=== PATIENT | female | born 2005 | race Two or more races ===

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

== ENCOUNTER 2025-01-22 09:48 | Inpatient (IN) | payer MEDICAID ==
[~2025-01-22] VITALS: Ht 172.7 cm; Wt 86.7 kg
[2025-01-22 09:56] VITALS: PULSE 90; RESP 18; O2SAT 100
--- NOTE | 2025-01-22 10:04 | ED.PDOC ---
GI ASSESSMENT HPI Comments 20 y/o F, with PMHx of DM II presents to the ED for CC of abdominal pain. Patient states, she has been experiencing RLQ abdominal pain with associated symptoms of nausea and chills onset, last night (01/21/25). Patient denies vomiting, diarrhea, body-aches, or fever. No other associated symptoms, modifiers, recent injuries or sick contacts present at this time. Time Seen by MD: 09:58 Primary Care Provider: DR VALIENTE Reviewed Notes: Nurses Notes, Medications, Allergies Allergies: Coded Allergies: NO KNOWN ALLERGIES (Unverified , 07/21/11) Home Meds Active Scripts Acetaminophen (Acetaminophen) 500 Mg Tab, 500 MG PO Q6HPRN, #30 TAB 0 Refills Prov:NINFA ALBA 06/14/23 Amoxicillin & Pot Clavulanate (Amoxicillin/Potassium Cla) 875 Mg Tab, 1 TAB PO BID for 7 Days, #14 TAB 0 Refills Prov:NINFA ALBA 06/14/23 Cephalexin ( Keflex 500) 500 Mg Cap, 1 CAP PO TID for 5 Days, #15 CAP 0 Refills Prov:VICKY PATE 03/08/22 Glyburide (Glyburide) 5 Mg Tab, 5 MG PO DAILY, #30 MG Prov:ADITI HIDALGO DO 12/30/21 Acetaminophen (Acetaminophen) 500 Mg Tab, 500 MG PO QIDP, #30 TAB 0 Refills Prov:NINFA ALBA 10/19/21 Amoxicillin & Pot Clavulanate (Amoxicillin/Potassium Cla) 875 Mg Tab, 1 TAB PO BID for 7 Days, #14 TAB 0 Refills Prov:NINFA ALBA 10/19/21 Information Source: Patient Mode of Arrival: Ambulatory Timing: Days Duration: Since onset Prehospital treatment: None Quality: None Vomitus: None Stool: Normal Severity: Moderate Recent: None Recent Hx of: None Pain Location: RLQ Modifying Factors: Nothing Associated sign and symptoms: Nausea, Abdominal Pain Past Medical History PAST MEDICAL HISTORY: DM Surgical History: Tonsillectomy MOBILITY MANAGER History: No Pertinent MOBILITY MANAGER History Family History Family History: Unknown Social History Smoker: Non-Smoker Alcohol: Denies ETOH Use Drugs: Denies Drug Use Lives In: Home Constitutional: reports: chills; denies: diaphoresis, fatigue, fever, malaise, sweats, weakness, others EENTM: denies: blurred vision, double vision, ear bleeding, ear discharge, ear drainage, ear pain, ear ringing, eye pain, eye redness, hearing loss, mouth pain, mouth swelling, nasal discharge, nose bleeding, nose congestion, nose pain, photophobia, tearing, throat pain, throat swelling, voice changes, others Respiratory: denies: cough, hemoptysis, orthopnea, SOB at rest, shortness of breath, SOB with excertion, stridor, wheezing, others Cardiovascular: denies: chest pain, dizzy spells, diaphoresis, Dyspnea on exertion, edema, irregular heart beat, left arm pain, lightheadedness, palpitations, PND, syncope, others Gastrointestinal: reports: abdominal pain, nausea; denies: abdomen distended, blood streaked bowels, constipated, diarrhea, dysphagia, difficulty swallowing, hematemesis, melena, poor appetite, poor fluid intake, rectal bleeding, rectal pain, vomiting, others Genitourinary: denies: abnormal vagina bleeding, burning, dyspareunia, dysuria, flank pain, frequency, hematuria, incontinence, pain, , vagina disc harge, urgency, others Neurological: denies: dizziness, fainting, headache, left sided numbness, left sided weakness, numbness, paresthesia, pre-existing deficit, right sided numbness, right sided weakness, seizure, speech problems, tingling, tremors, weakness, others Musculoskeletal: denies: back pain, gout, joint pain, joint swelling, muscle pain, muscle stiffness, neck pain, others Integumetry: denies: bruises, change in color, change in hair/nails, dryness, laceration, lesions, lumps, rash, wounds, others Allergic/Immunocompromised: denies: Difficulty Healing, Frequent Infections, Hives, Itching, others Hematologic/Lymphatic: denies: anemia, blood clots, easy bleeding, easy bruising, swollen glands, others Endocrine: denies: excessive hunger, excessive sweating, excessive thirst, excessive urination, flushing, intolerance to cold, intolerance to heat, unexplained weight gain, unexplained weight loss, others Psychiatric: denies: anxiety, bipolar disorder, depression, hopeless, panic disorder, schizophrenia, sleepless, suicidal, others All Other Systems: Reviewed and Negative Physical Exam General Appearance: Moderate Distress HEENT: Normal ENT Inspection, Pharynx Normal, TMs Normal Neck: Full Range of Motion, Non-Tender, Normal, Normal Inspection Respiratory: Chest Non-Tender, Lungs Clear, No Accessory Muscle Use, No Respiratory Distress, Normal Breath Sounds Cardiovascular: No Edema, No JVD, No Murmur, No Gallop, Normal Peripheral Pulses, Regular Rate/Rhythm Breast Exam: Deferred Gastrointestinal: No Organomegaly, Non Tender, No Pulsatile Mass, Normal Bowel Sounds, Soft Genitalia: Deferred Pelvic: Deferred Rectal: Deferred Extremities: No calf tenderness, Normal capillary refill, Normal inspection, Normal range of motion, Non-tender, No pedal edema Musculoskeletal : Apperance: Normal Neurologic: Alert, production generalist II-XII nml as Tested, No Motor Deficits, Normal Affect, Normal Mood, No Sensory Deficits Cerebellar Function: Normal Reflexes: Normal Skin: Dry, Normal Color, Warm Peripheral Pulses: 3+ Radial (R), 3+ Radial (L) Lymphatic: No Adenopathy Was a procedure done? Was a procedure done?: No GI differential Dx Differential Diagnosis: Constipation, Diverticular disease, Esophagitis, Gastritis/PUD, Gastroenteritis, Electrolyte Imbalance, Food Poisoning, Bacterial, Viral X-Ray, Labs, Meds, VS Vital Signs Date Time Temp Pulse Resp B/P (MAP) Pulse Ox O2 Delivery O2 Flow Rate FiO2 01/22/25 10:42 81 18 99 Room Air 01/22/25 10:42 99.0 87 18 135/83 (100) 99 99.0 01/22/25 09:56 90 18 100 Room Air* 0 21 01/22/25 09:56 98.1 90 18 162/75 (104) 100 98.1 Lab Test 01/22/25 10:30 01/22/25 10:22 Range/Units Urine Color Colorless Yellow Urine Clarity Clear Clear Urine pH 6.0 5.0-9.0 Urine Specific [place] 1.033 1.001-1.035 Urine Protein Trace H Negative Urine Ketones 3+ H Negative Urine Blood 1+ H Negative /uL Urine Nitrite Negative Negative Urine Bilirubin Negative Negative Urine Urobilinogen Normal Negative mg/dL Urine Leukocyte Esterase 1+ Negative /uL Urine RBC 9 0 - 4 /hpf Urine Microscopic WBC 50 H 0-5 /HPF Urine Squamous Epithelial Cells Few <5 /hpf Urine Bacteria Few H None Seen /hpf Urine Glucose 4+ H Normal mg/dL White Blood Count 11.2 H 4.4-10.8 10^3/uL Red Blood Count 5.32 H 4.0-5.20 10^6/uL Hemoglobin 16.1 12.2-16.2 g/dL Hematocrit 46.6 H 36.0-46.0 % Mean Corpuscular Volume 87.5 80.0-100.0 fL Mean Corpuscular Hemoglobin 30.3 28.0-32.0 pg Mean Corpuscular Hemoglobin Concent 34.6 32.0-36.0 g/dL Red Cell Distribution Width 12.5 11.8-14.3 % Platelet Count 354 140-450 10^3/uL Mean Platelet Volume 7.5 6.9-10.8 fL Neutrophils (%) (Auto) 73.7 37.0-80.0 % Lymphocytes (%) (Auto) 17.0 10.0-50.0 % Monocytes (%) (Auto) 7.7 0.0-12.0 % Eosinophils (%) (Auto) 1.2 0.0-7.0 % Basophils (%) (Auto) 0.4 0.0-2.0 % Neutrophils # (Auto) 8.2 1.6-8.6 10 ^3/uL Lymphocytes # (Auto) 1.9 0.4-5.4 10 ^3/uL Monocytes # (Auto) 0.9 0-1.3 10 ^3/uL Eosinophils # (Auto) 0.1 0-0.8 10 ^3/uL Basophils # (Auto) 0 0-0.2 10 ^3/uL Nucleated Red Blood Cells 0.1 % Sodium Level 135 L 136-145 mmol/L Potassium Level 4.4 3.5-5.1 mmol/L Chloride Level 97 L 98-107 mmol/L Carbon Dioxide Level 27 20-31 mmol/L Anion Gap 11 5-15 Blood Urea Nitrogen 8 L 9-23 mg/dL Creatinine 0.76 0.550-1.02 mg/dL Glomerular Filtration Rate Calc 115 >90 mL/min BUN/Creatinine Ratio 10.5 10.0-20.0 Serum Glucose 347 H 74-106 mg/dL Calcium Level 10.2 8.7-10.4 mg/dL Patient alert. Complaining of abdominal discomfort. Vitals stable. Answering questions. Abdomen is soft nontender. No sign of distress. Blood sugar elevated. Establish intravenous access. Was given fluids. Was given insulin. UA shows UTI. Was given Rocephin. Explained to the patient. Time of 1ST Reevaluation: 10:22 Reevaluation 1ST: Unchanged Patient Education/Counseling: Diagnosis, Treatment Family Education/Counseling: No Family Present SEPSIS Sepsis Screen Physician Orders 1 Liter Bolus Of 0.9% Ns (01/22/25 11:15) Ceftriaxone Ivpb Rocephin (01/22/25 11:15) Vital Signs Date Time Temp Pulse Resp B/P (MAP) Pulse Ox O2 Delivery O2 Flow Rate FiO2 01/22/25 10:42 81 18 99 Room Air 01/22/25 10:42 99.0 87 18 135/83 (100) 99 99.0 01/22/25 09:56 90 18 100 Room Air* 0 21 01/22/25 09:56 98.1 90 18 162/75 (104) 100 98.1 Laboratory Tests Test 01/22/25 10:22 White Blood Count 11.2 10^3/uL (4.4-10.8) H Departure 1 Departure Time of Disposition: 10:08 Impression: Primary Impression: Sepsis due to urinary tract infection Additional Impression: Diabetes type 2, uncontrolled Qualified Codes: E11.65 - Type 2 diabetes mellitus with hyperglycemia Disposition: ADMITTED INPATIENT Admit to: Med Surg Condition: Guarded Critical Care Note Critical Care Time?: No Stability Stability form required: No Heart Score Heart Score: Heart Score Response (Comments) Value History N/A 0 EKG N/A 0 Age N/A 0 Risk Factors N/A 0 Troponin N/A 0 Total 0 I personally scribed for ORTEGA EDMONDSON MD ([email or web address]) on 01/22/25 at 10:04. Electronically submitted by Nichol Dumont ([email or web address]). ORTEGA EDMONDSON MD Jan 22, 2025 10:04
[2025-01-22 10:38] LABS: Hematocrit 46.6 % (36.0-46.0); Hemoglobin 16.1 g/dL (12.2-16.2); Mean Corpuscular Hemoglobin 30.3 pg (28.0-32.0); Mean Corpuscular Volume 87.5 fL (80.0-100.0); Nucleated Red Blood Cells % 0.1 %
[2025-01-22 10:42] LABS: Potassium 4.4 mmol/L (3.5-5.1)
[2025-01-22 10:43] LABS: Anion Gap 11 (5-15); Carbon Dioxide 27 mmol/L (20-31)
[2025-01-22 10:44] LABS: Calcium 10.2 mg/dL (8.7-10.4)
[2025-01-22 10:48] LABS: BUN/Creatinine Ratio 10.5 (10.0-20.0)
[2025-01-22 10:49] LABS: Blood Urea Nitrogen 8 mg/dL (9-23); Chloride 97 mmol/L (98-107); Glucose 347 mg/dL (74-106); Sodium 135 mmol/L (136-145)
[2025-01-22 10:55] LABS: Urine Protein, UAD TRACE (Negative)
[2025-01-22] MEDS: cefTRIAXone 1GM/50ML D5W 50 ML IV ONE (11:38)
[2025-01-22] MEDS: SODIUM CHLORIDE 0.9% 1,000 ML IV ONE ×2 (11:38→14:15)
[2025-01-22] MEDS: InsuLIN REG 1unit/0.01ml Soln (100units/ml) IV ONE (11:38)
--- NOTE | 2025-01-22 11:52 | DVH ---
EXAM: CT CT AB PEL WO CON-NO ORAL OR IV HISTORY: 20-year-old female with abdominal pain. COMPARISON: None TECHNIQUE: Helical CT images of the abdomen and pelvis were performed without IV contrast. Sagittal a nd coronal reformatted images were obtained. This CT exam was performed using one or more of the foll owing dose reduction techniques: Automated exposure control, adjustment of the mA and/or kv according to patient size, or the use of iterative reconstruction techniques. Radiation Dose: Abdomen/Pelvis: CTDIvol 13.37 mGy, DLP 778.208 mGy*cm. FINDINGS: CT abdomen: The lung bases are clear. The heart is not enlarged. The noncontrast liver, spleen, gallb ladder, pancreas, kidneys, and adrenal glands are unremarkable. There is fat stranding about the righ t proximal ureter. No abdominal aortic aneurysm. There is a left upper quadrant splenule. CT pelvis: No abnormal bowel dilatation or free air. The appendix and uterus are unremarkable. The ur inary bladder wall is diffusely thickened. There is low volume free fluid in the pelvis. There is low er lumbar degenerative disc disease. There is grade 1 anterolisthesis L5 on S1 without evidence of s pondylolysis. IMPRESSION: 1. Diffuse urinary bladder wall thickening suggestive of cystitis. Additionally, there is mild fat s tranding about the right proximal ureter which may indicate ureteritis or early pyelonephritis. 2. Low volume free fluid in the pelvis may be physiologic. 3. No evidence of bowel obstruction, acute appendicitis, or other acute process in the abdomen or pel vis.
[2025-01-22] MEDS ORDERED: ONDANSETRON HCL 4 MG/2 ML VIAL IV PRN (14:15)
[2025-01-22] MEDS ORDERED: DEXTROSE (50%) 50ML SYRG IV PRN (14:15)
[2025-01-22] MEDS ORDERED: DOCUSATE SOD 100 MG CAP PO PRN (14:15)
--- NOTE | 2025-01-22 14:24 | DVHHP2 ---
History of Present Illness Reason for Visit: Abdominal pain History of Present Illness Cindy Best is a 20-year-old female with past medical history of diabetes and hyperlipidemia, who came to the hospital due to abdominal pain. Patient states the abdominal pain is in her pelvic region radiating to the right. It started last night with associated chills, and body aches. Cardiovascular: hyperipidemia Endocrine: Diabetes Past Surgical History: None Smoke: No ALCOHOL: none Drugs: Marijuana Lives: with Family Domestic Violence: Neg Review of Systems Constitutional: Yes: Chills, Malaise, Other (bodyaches); No: Fever, Sweats, Weakness Eyes: No: Pain, Vision change, Conjunctivae inflammation, Eyelid inflammation, Other, Redness ENT: No: Ear pain, Ear discharge, Nose pain, Nose discharge, Nose congestion, Mouth pain, Mouth swelling, Throat pain, Throat swelling, Other Respiratory: No: Cough, Dry, Shortness of breath, SOB with excertion, Wheezing, Hemoptysis, Pleuritic Pain, Sputum, Wheezing, Other Cardiovascular: No: Chest Pain, Palpitations, Orthopnea, Paroxysmal Noc. Dyspnea, Edema, Lt Headedness, Other Gastrointestinal: Nausea, Abdominal Pain; No: Vomiting, Diarrhea, Constipation, Melena, Hematochezia, Other Genitourinary: No Dysuria, No Frequency, No Incontinence, No Hematuria, No Retention, No Other Musculoskeletal: No: other, neck pain, shoulder pain, arm pain, back pain, hand pain, leg pain, foot pain Skin: No: Rash, Lesions, Jaundice, Bruising, Other Neurological: No: Weakness, Numbness, Incoordination, Change in speech, Confusion, Seizures, Other Allergies: Coded Allergies: NO KNOWN ALLERGIES (Unverified , 07/21/11) Exam Vital Signs Vital Signs Date Time Temp Pulse Resp B/P (MAP) Pulse Ox O2 Delivery O2 Flow Rate FiO2 01/22/25 14:03 95 16 109/70 (83) 98 01/22/25 10:42 Room Air 01/22/25 10:42 99.0 99.0 01/22/25 09:56 0 21 General Appearance: Alert, Oriented X3, Cooperative, mild distress HEENT: Atraumatic, PERRLA, Mucous membr. moist/pink Respiratory: Clear to auscultation, Normal air movement Cardiovascular: Regular rate, Normal S1, Normal S2, No murmurs Abdominal: Normal bowel sounds, Soft, Other (RLQ and pelvic pain) Extremities: No clubbing, No cyanosis, No edema, Normal pulses, No tenderness/swelling Skin: No rashes, No breakdown, No significant lesion Neuro: Normal gait, Normal speech, Strength at 5/5 X4 ext Psych/Mental Status: Mental status NL, Mood NL Labs/Xrays Labs Test 01/22/25 11:32 01/22/25 10:30 01/22/25 10:22 Range/Units POC Glucose 293 H 70-106 mg/dl Urine Color Colorless Yellow Urine Clarity Clear Clear Urine pH 6.0 5.0-9.0 Urine Specific [place] 1.033 1.001-1.035 Urine Protein Trace H Negative Urine Ketones 3+ H Negative Urine Blood 1+ H Negative /uL Urine Nitrite Negative Negative Urine Bilirubin Negative Negative Urine Urobilinogen Normal Negative mg/dL Urine Leukocyte Esterase 1+ Negative /uL Urine RBC 9 0 - 4 /hpf Urine Microscopic WBC 50 H 0-5 /HPF Urine Squamous Epithelial Cells Few <5 /hpf Urine Bacteria Few H None Seen /hpf Urine Glucose 4+ H Normal mg/dL White Blood Count 11.2 H 4.4-10.8 10^3/uL Red Blood Count 5.32 H 4.0-5.20 10^6/uL Hemoglobin 16.1 12.2-16.2 g/dL Hematocrit 46.6 H 36.0-46.0 % Mean Corpuscular Volume 87.5 80.0-100.0 fL Mean Corpuscular Hemoglobin 30.3 28.0-32.0 pg Mean Corpuscular Hemoglobin Concent 34.6 32.0-36.0 g/dL Red Cell Distribution Width 12.5 11.8-14.3 % Platelet Count 354 140-450 10^3/uL Mean Platelet Volume 7.5 6.9-10.8 fL Neutrophils (%) (Auto) 73.7 37.0-80.0 % Lymphocytes (%) (Auto) 17.0 10.0-50.0 % Monocytes (%) (Auto) 7.7 0.0-12.0 % Eosinophils (%) (Auto) 1.2 0.0-7.0 % Basophils (%) (Auto) 0.4 0.0-2.0 % Neutrophils # (Auto) 8.2 1.6-8.6 10 ^3/uL Lymphocytes # (Auto) 1.9 0.4-5.4 10 ^3/uL Monocytes # (Auto) 0.9 0-1.3 10 ^3/uL Eosinophils # (Auto) 0.1 0-0.8 10 ^3/uL Basophils # (Auto) 0 0-0.2 10 ^3/uL Nucleated Red Blood Cells 0.1 % Sodium Level 135 L 136-145 mmol/L Potassium Level 4.4 3.5-5.1 mmol/L Chloride Level 97 L 98-107 mmol/L Carbon Dioxide Level 27 20-31 mmol/L Anion Gap 11 5-15 Blood Urea Nitrogen 8 L 9-23 mg/dL Creatinine 0.76 0.550-1.02 mg/dL Glomerular Filtration Rate Calc 115 >90 mL/min BUN/Creatinine Ratio 10.5 10.0-20.0 Serum Glucose 347 H 74-106 mg/dL Calcium Level 10.2 8.7-10.4 mg/dL EXAM: CT CT AB PEL WO CON-NO ORAL OR IV FINDINGS: CT abdomen: The lung bases are clear. The heart is not enlarged. The noncontrast liver, spleen, gallbladder, pancreas, kidneys, and adrenal glands are unremarkable. There is fat stranding about the right proximal ureter. No abdominal aortic aneurysm. There is a left upper quadrant splenule. CT pelvis: No abnormal bowel dilatation or free air. The appendix and uterus are unremarkable. The urinary bladder wall is diffusely thickened. There is low volume free fluid in the pelvis. There is lower lumbar degenerative disc disease. There is grade 1 anterolisthesis L5 on S1 without evidence of spondylolysis. IMPRESSION: 1. Diffuse urinary bladder wall thickening suggestive of cystitis. Addit ionally, there is mild fat stranding about the right proximal ureter which may indicate ureteritis or early pyelonephritis. 2. Low volume free fluid in the pelvis may be physiologic. 3. No evidence of bowel obstruction, acute appendicitis, or other acute process in the abdomen or pelvis. SEPSIS Sepsis Screen Date sepsis recognized/suspect: Jan 22, 2025 Time Sepsis recognized/suspect: 0956 Recent Procedure: No On Antibiotic Therapy: No Respiratory Rate >20: No Heart Rate >90: No Temp<36 C (96.8 F) or >38.3 C: No SBP <90 or MAP <65 mmHG: No New Acute Mental Status Change: No Is the patient on CPAP, BIPAP,: No Physician Orders Urine Bacterial Culture (01/22/25 11:05) Ct Ab Pel Wo Con-No Oral Or Iv (01/22/25 11:06) Glucose Blood (Accu-Chek Comfort Curve T (01/22/25 17:00) Bedtime Insulin Scale (01/22/25 22:00) Moderate Insulin Ss (01/22/25 17:00) Dextrose 50% Syringe (01/22/25 14:15) Admit (01/22/25 14:09) Code Status (01/22/25 14:09) Hydrocodone-Acet 5/325mg Tab (Bend 5/32 (01/22/25 14:15) Ondansetron Hcl (Zofran) (01/22/25 14:15) Docusate Sodium Capsule (Colace Capsule) (01/22/25 14:15) Complete Blood Count (01/23/25 04:00) Comprehensive Metabolic Panel (01/23/25 04:00) Condition: Serious (01/22/25 14:09) Acetaminophen Tablet (Tylenol Tablet) (01/22/25 14:15) Consistent Carb(Ccho)Diabetes (01/22/25 Dinner) Ceftriaxone Ivpb Rocephin (01/23/25 09:00) NS (01/22/25 14:15) Vital Signs Date Time Temp Pulse Resp B/P (MAP) Pulse Ox O2 Delivery O2 Flow Rate FiO2 01/22/25 14:03 95 16 109/70 (83) 98 01/22/25 10:42 81 18 99 Room Air 01/22/25 10:42 99.0 87 18 135/83 (100) 99 99.0 01/22/25 09:56 90 18 100 Room Air* 0 21 01/22/25 09:56 98.1 90 18 162/75 (104) 100 98.1 Laboratory Tests Test 01/22/25 10:22 White Blood Count 11.2 10^3/uL (4.4-10.8) H Medications Medications Dose Ordered Sig/Segundo Route Start Time Stop Time Status Last Admin Dose Admin Ceftriaxone Sodium 50 ml @ 100 mls/hr ONCE ONCE IV 01/22/25 11:15 01/22/25 11:44 DC 01/22/25 11:38 100 MLS/HR Sodium Chloride 1,000 ml @ 1,000 mls/hr Q1H ONCE IV 01/22/25 11:15 01/22/25 12:14 DC 01/22/25 11:38 1,000 MLS/HR Assessment/Plan Assessment/Plan Assessment: Complicated urinary tract infection, Pyelonephritis, Hyperglycemia, Uncontrolled diabetes, Hyperlipidemia, Plan: Admit to Med-Surg, IV antibiotics, IV hydration, A1c, Accu checks Q AC&HS with sliding scale, Home medications reconciled, patient is unsure of 2 of her home medication doses. States she will call and have family bring them. Plan discussed with: Patient, Other (Mother) My Orders Orders - JORDI MESSER Procedure Category Date Status Time Glucose Blood PHA 01/22/25 Verified (Accu-Chek Comfort 17:00 Bedtime Insulin Scale PHA 01/22/25 Verified 22:00 Moderate Insulin Ss PHA 01/22/25 Verified 17:00 Dextrose 50% Syringe PHA 01/22/25 Verified 14:15 Admit ADMIT 01/22/25 Verified 14:09 Code Status CODE 01/22/25 Verified 14:09 Hydrocodone-Acet PHA 01/22/25 Verified 5/325mg Tab (Bend 14:15 Ondansetron Hcl PHA 01/22/25 Verified (Zofran) 14:15 Docusate Sodium PHA 01/22/25 Verified Capsule (Colace 14:15 Complete Blood Count LAB 01/23/25 Verified 04:00 Comprehensive LAB 01/23/25 Verified Metabolic Panel 04:00 Condition: Serious RADHA 01/22/25 Verified 14:09 Acetaminophen Tablet PHA 01/22/25 Verified (Tylenol Tablet) 14:15 Consistent DIET 01/22/25 Verified Carb(Ccho)Diabetes Dinner Ceftriaxone Ivpb PHA 01/23/25 Verified Rocephin 09:00 NS PHA 01/22/25 Verified 14:15 Date of Service: Jan 22, 2025 Billing Provider: JORDI EMSSER Common Visit Codes: [id number] INP/OBS CARE (MOD) JORDI MESSER Jan 22, 2025 14:24
[2025-01-22] MEDS: HYDROcodone-ACET 5/325MG TAB PO PRN (15:38)
[2025-01-22 17:20] VITALS: BP 112/75; PULSE 73; RESP 16; TEMP 98.2; O2SAT 99
[2025-01-22] MEDS ORDERED: METF-370 PO (17:23)
[2025-01-22] MEDS ORDERED: SITA25TA3 PO (17:34)
[2025-01-22] MEDS: InsuLIN REG 1unit/0.01ml Soln (100units/ml) SC SCH ×2 (18:12→21:47)
[2025-01-22] MEDS: ACCU-CHEK COMFORT CURVE STRIP VI SCH (18:13)
[2025-01-23 00:10] VITALS: PULSE 73; RESP 18; O2SAT 97
[2025-01-23 06:21] LABS: Hematocrit 39.8 % (36.0-46.0); Hemoglobin 14.0 g/dL (12.2-16.2); Mean Corpuscular Hemoglobin 30.8 pg (28.0-32.0); Mean Corpuscular Volume 87.4 fL (80.0-100.0); Nucleated Red Blood Cells % 0.1 %
[2025-01-23 06:42] LABS: Albumin 4.0 g/dL (3.2-4.8); Alkaline Phosphatase 74 U/L (46-116); Anion Gap 10 (5-15); BUN/Creatinine Ratio 16.4 (10.0-20.0); Bilirubin, Total 0.6 mg/dL (0.2-1.0); Calcium 9.5 mg/dL (8.7-10.4); Carbon Dioxide 25 mmol/L (20-31); Chloride 102 mmol/L (98-107); Potassium 3.6 mmol/L (3.5-5.1); Sodium 137 mmol/L (136-145); Total Protein 6.0 g/dL (5.7-8.2)
[2025-01-23 06:49] LABS: Alanine Aminotransferase < 9 U/L (7-40); Blood Urea Nitrogen 9 mg/dL (9-23); Glucose 216 mg/dL (74-106)
[2025-01-23 08:50] VITALS: BP 97/62; PULSE 82; RESP 23; TEMP 97.4; O2SAT 98
[2025-01-23] MEDS: cefTRIAXone 1GM/50ML D5W 50 ML IV SCH (09:25)
[2025-01-23 12:36] VITALS: BP 120/87; PULSE 80; RESP 19; TEMP 97.6; O2SAT 100
--- NOTE | 2025-01-23 14:10 | DVHPN2 ---
Reviewed: Care Plan, H&P, Labs, Medications, Previous Orders Changes from previous H/P or p: No Changes General: Per HPI Eyes: No Pain, No Vision change, No Conjunctivae inflammation, No Eyelid inflammation, No Other, No Redness ENT: No Ear pain, No Ear discharge, No Nose pain, No Nose discharge, No Nose congestion, No Mouth pain, No Mouth swelling, No Throat pain, No Throat swelling, No Other Cardiovascular: No Chest Pain, No Palpitations, No Orthopnea, No Paroxysmal Noc. Dyspnea, No Edema, No Lt Headedness, No Other Respiratory: No Cough, No Dry, No Shortness of breath, No SOB with excertion, No Wheezing, No Hemoptysis, No Pleuritic Pain, No Sputum, No Other Gastrointestinal: Nausea; No Vomiting; Abdominal Pain; No Diarrhea, No Constipation, No Melena, No Hematochezia, No Other Genitourinary: No Dysuria, No Frequency, No Incontinence, No Hematuria, No Retention, No Other Musculoskeletal: No other, No neck pain, No shoulder pain, No arm pain, No back pain, No hand pain, No leg pain, No foot pain Skin: No Rash, No Lesions, No Jaundice, No Bruising, No Other Objective Vitals Vital Signs Date Time Temp Pulse Resp B/P (MAP) Pulse Ox O2 Delivery O2 Flow Rate FiO2 01/23/25 12:36 97.6 80 19 120/87 (98) 100 97.6 01/23/25 08:23 Room Air* 0 21 Intake/Output Intake and Output 01/23/25 07:00 Intake Total 1700 ml Balance 1700 ml Intake Oral 650 ml IV Total 1050 ml # Voids 4 Medications Current Medications Medications Dose Ordered Sig/Segundo Route Start Time Stop Time Status Last Admin Dose Admin Diagnostic Test (Pha) 1 strip ACHS 01/22/25 17:00 01/23/25 12:15 1 STRIP Insulin Human Regular HS SC 01/22/25 22:00 01/22/25 21:47 6 UNITS Insulin Human Regular AC SC 01/22/25 17:00 01/23/25 12:15 9 UNITS Dextrose 50 ml UD PRN IV 01/22/25 14:15 Acetaminophen/ Hydrocodone Bitart 1 tab Q4HP PRN PO 01/22/25 14:15 01/23/25 12:20 1 TAB Ondansetron HCl 4 mg Q4HP PRN IV 01/22/25 14:15 Docusate Sodium 100 mg BIDPRN PRN PO 01/22/25 14:15 Acetaminophen 650 mg Q6HP PRN PO 01/22/25 14:15 Ceftriaxone Sodium 50 ml @ 100 mls/hr DAILY@09 IV 01/23/25 09:00 01/23/25 09:25 100 MLS/HR Glyburide 5 mg DAILY@BREAKFAST PO 01/23/25 08:00 01/23/25 10:32 5 MG Laboratory Results Laboratory Tests 01/23/25 05:25 Chemistry Test 01/23/25 05:25 Albumin 4.0 g/dL (3.2-4.8) Calcium Level 9.5 mg/dL (8.7-10.4) Total Protein 6.0 g/dL (5.7-8.2) LFT Test 01/23/25 05:25 Alanine Aminotransferase (ALT) < 9 U/L (7-40) Alkaline Phosphatase 74 U/L (46-116) Aspartate Amino Transferase (AST) 9 U/L (13-40) L Total Bilirubin 0.6 mg/dL (0.2-1.0) Urinalysis Test 01/22/25 10:30 Urine Color Colorless (Yellow) Urine Clarity Clear (Clear) Urine pH 6.0 (5.0-9.0) Urine Specific [place] 1.033 (1.001-1.035) Urine Protein Trace (Negative) H Urine Ketones 3+ (Negative) H Urine Blood 1+ /uL (Negative) H Urine Nitrite Negative (Negative) Urine Bilirubin Negative (Negative) Urine Urobilinogen Normal mg/dL (Negative) Urine Leukocyte Esterase 1+ /uL (Negative) Urine RBC 9 /hpf (0 - 4) Urine Microscopic WBC 50 /HPF (0-5) H Urine Squamous Epithelial Cells Few /hpf (<5) Urine Bacteria Few /hpf (None Seen) H Urine Glucose 4+ mg/dL (Normal) H Microbiology Microbiology Date/Time Source Procedure Growth Status 01/22/25 10:30 Voided Urine Urine Culture - Preliminary Streptococcus Group B Resulted Assessment/Plan Assessment/Plan Complicated urinary tract infection, Pyelonephritis, Hyperglycemia, Uncontrolled diabetes, Dm type II with hyperglycemia Hyperlipidemia leukocytosis 01/23/25 needs to continue with IV aBx serum glucose is better Plan discussed with: Patient Date of Service: Jan 23, 2025 Billing Provider: VERONICA JOHNSON DO Common Visit Codes: [id number] INP/OBS CARE(HIGH) VERONICA JOHNSON DO Jan 23, 2025 14:10
[2025-01-23 16:45] VITALS: BP 115/99; PULSE 85; RESP 20; TEMP 97.9; O2SAT 99
[2025-01-23 21:00] VITALS: BP 115/83; PULSE 82; RESP 17; TEMP 97.7; O2SAT 99
[2025-01-24] VITALS (8 sets, daily range): BP systolic 103–115; BP diastolic 64–77; PULSE 73–80; RESP 16–18; TEMP 97.3–98.1; O2SAT 97–100
--- NOTE | 2025-01-24 14:46 | DVHPN2 ---
Reviewed: Care Plan, H&P, Labs, Medications, Previous Orders Changes from previous H/P or p: No Changes General: Per HPI Eyes: No Pain, No Vision change, No Conjunctivae inflammation, No Eyelid inflammation, No Other, No Redness ENT: No Ear pain, No Ear discharge, No Nose pain, No Nose discharge, No Nose congestion, No Mouth pain, No Mouth swelling, No Throat pain, No Throat swelling, No Other Cardiovascular: No Chest Pain, No Palpitations, No Orthopnea, No Paroxysmal Noc. Dyspnea, No Edema, No Lt Headedness, No Other Respiratory: No Cough, No Dry, No Shortness of breath, No SOB with excertion, No Wheezing, No Hemoptysis, No Pleuritic Pain, No Sputum, No Other Gastrointestinal: Nausea; No Vomiting; Abdominal Pain; No Diarrhea, No Constipation, No Melena, No Hematochezia, No Other Genitourinary: No Dysuria, No Frequency, No Incontinence, No Hematuria, No Retention, No Other Musculoskeletal: No other, No neck pain, No shoulder pain, No arm pain, No back pain, No hand pain, No leg pain, No foot pain Skin: No Rash, No Lesions, No Jaundice, No Bruising, No Other Objective Vitals Vital Signs Date Time Temp Pulse Resp B/P (MAP) Pulse Ox O2 Delivery O2 Flow Rate FiO2 01/24/25 12:32 98.0 79 18 115/74 (88) 98 98.0 01/24/25 08:00 Room Air* 0 21 Intake/Output Intake and Output 01/24/25 07:00 Intake Total 2020 ml Balance 2020 ml Intake Oral 1970 ml IV Total 50 ml # Voids 5 # Bowel Movements 2 Medications Current Medications Medications Dose Ordered Sig/Segundo Route Start Time Stop Time Status Last Admin Dose Admin Diagnostic Test (Pha) 1 strip ACHS 01/22/25 17:00 01/24/25 11:10 1 STRIP Insulin Human Regular HS SC 01/22/25 22:00 01/23/25 22:12 6 UNITS Insulin Human Regular AC SC 01/22/25 17:00 01/24/25 11:20 12 UNITS Dextrose 50 ml UD PRN IV 01/22/25 14:15 Acetaminophen/ Hydrocodone Bitart 1 tab Q4HP PRN PO 01/22/25 14:15 01/23/25 12:20 1 TAB Ondansetron HCl 4 mg Q4HP PRN IV 01/22/25 14:15 Docusate Sodium 100 mg BIDPRN PRN PO 01/22/25 14:15 Acetaminophen 650 mg Q6HP PRN PO 01/22/25 14:15 Ceftriaxone Sodium 50 ml @ 100 mls/hr DAILY@09 IV 01/23/25 09:00 01/24/25 08:12 100 MLS/HR Glyburide 5 mg DAILY@BREAKFAST PO 01/23/25 08:00 01/24/25 08:19 5 MG Laboratory Results Laboratory Tests 01/23/25 05:25 Urinalysis Test 01/22/25 10:30 Urine Color Colorless (Yellow) Urine Clarity Clear (Clear) Urine pH 6.0 (5.0-9.0) Urine Specific [place] 1.033 (1.001-1.035) Urine Protein Trace (Negative) H Urine Ketones 3+ (Negative) H Urine Blood 1+ /uL (Negative) H Urine Nitrite Negative (Negative) Urine Bilirubin Negative (Negative) Urine Urobilinogen Normal mg/dL (Negative) Urine Leukocyte Esterase 1+ /uL (Negative) Urine RBC 9 /hpf (0 - 4) Urine Microscopic WBC 50 /HPF (0-5) H Urine Squamous Epithelial Cells Few /hpf (<5) Urine Bacteria Few /hpf (None Seen) H Urine Glucose 4+ mg/dL (Normal) H Microbiology Microbiology Date/Time Source Procedure Growth Status 01/22/25 17:42 Nose MRSA Screen - Final Complete 01/22/25 10:30 Voided Urine Urine Culture - Final Streptococcus Group B Complete Assessment/Plan Assessment/Plan Complicated urinary tract infection, Pyelonephritis, Hyperglycemia, Uncontrolled diabetes, Dm type II with hyperglycemia Hyperlipidemia leukocytosis 01/23/25 needs to continue with IV aBx serum glucose is better 01/24/2025 pending urine sensitivity Plan discussed with: Patient My Orders Orders - VERONICA JOHNSON DO Procedure Category Date Status Time Insulin Lantus PHA 01/25/25 Transmitted (Glargine) (Lantus) 10:00 Date of Service: Jan 24, 2025 Billing Provider: VERONICA JOHNSON DO Common Visit Codes: [id number] INP/OBS CARE(HIGH) VERONICA JOHNSON DO Jan 24, 2025 14:46
[2025-01-25] VITALS (7 sets, daily range): BP systolic 98–116; BP diastolic 61–86; PULSE 72–99; RESP 16–20; TEMP 97.1–98.9; O2SAT 96–99
[2025-01-25] MEDS: ACETAMINOPHEN 325 MG TAB PO PRN (10:35)
[2025-01-25] MEDS: INSULIN LANTUS (GLARGINE) 1 /0.01ml (100units/ml) SC SCH (10:44)
--- NOTE | 2025-01-25 13:49 | DVHPN2 ---
Reviewed: Care Plan, H&P, Labs, Medications, Previous Orders Changes from previous H/P or p: No Changes General: Per HPI Eyes: No Pain, No Vision change, No Conjunctivae inflammation, No Eyelid inflammation, No Other, No Redness ENT: No Ear pain, No Ear discharge, No Nose pain, No Nose discharge, No Nose congestion, No Mouth pain, No Mouth swelling, No Throat pain, No Throat swelling, No Other Cardiovascular: No Chest Pain, No Palpitations, No Orthopnea, No Paroxysmal Noc. Dyspnea, No Edema, No Lt Headedness, No Other Respiratory: No Cough, No Dry, No Shortness of breath, No SOB with excertion, No Wheezing, No Hemoptysis, No Pleuritic Pain, No Sputum, No Other Gastrointestinal: Nausea; No Vomiting; Abdominal Pain; No Diarrhea, No Constipation, No Melena, No Hematochezia, No Other Genitourinary: No Dysuria, No Frequency, No Incontinence, No Hematuria, No Retention, No Other Musculoskeletal: No other, No neck pain, No shoulder pain, No arm pain, No back pain, No hand pain, No leg pain, No foot pain Skin: No Rash, No Lesions, No Jaundice, No Bruising, No Other Objective Vitals Vital Signs Date Time Temp Pulse Resp B/P (MAP) Pulse Ox O2 Delivery O2 Flow Rate FiO2 01/25/25 13:00 98.9 73 20 112/74 (87) 99 98.9 01/25/25 08:00 Room Air* 0 21 Intake/Output Intake and Output 01/25/25 07:00 Intake Total 2250 ml Balance 2250 ml Intake Oral 2200 ml IV Total 50 ml # Voids 8 # Bowel Movements 2 Medications Current Medications Medications Dose Ordered Sig/Segundo Route Start Time Stop Time Status Last Admin Dose Admin Diagnostic Test (Pha) 1 strip ACHS 01/22/25 17:00 01/25/25 11:30 1 STRIP Insulin Human Regular HS SC 01/22/25 22:00 01/24/25 22:23 8 UNITS Insulin Human Regular AC SC 01/22/25 17:00 01/25/25 12:11 9 UNITS Dextrose 50 ml UD PRN IV 01/22/25 14:15 Acetaminophen/ Hydrocodone Bitart 1 tab Q4HP PRN PO 01/22/25 14:15 01/23/25 12:20 1 TAB Ondansetron HCl 4 mg Q4HP PRN IV 01/22/25 14:15 Docusate Sodium 100 mg BIDPRN PRN PO 01/22/25 14:15 Acetaminophen 650 mg Q6HP PRN PO 01/22/25 14:15 01/25/25 10:35 650 MG Ceftriaxone Sodium 50 ml @ 100 mls/hr DAILY@09 IV 01/23/25 09:00 01/25/25 08:21 100 MLS/HR Glyburide 5 mg DAILY@BREAKFAST PO 01/23/25 08:00 01/25/25 08:21 5 MG Insulin Glargine 10 units DAILY@1000 SC 01/25/25 10:00 01/25/25 10:44 10 UNITS Laboratory Results Laboratory Tests 01/23/25 05:25 Urinalysis Test 01/22/25 10:30 Urine Color Colorless (Yellow) Urine Clarity Clear (Clear) Urine pH 6.0 (5.0-9.0) Urine Specific [place] 1.033 (1.001-1.035) Urine Protein Trace (Negative) H Urine Ketones 3+ (Negative) H Urine Blood 1+ /uL (Negative) H Urine Nitrite Negative (Negative) Urine Bilirubin Negative (Negative) Urine Urobilinogen Normal mg/dL (Negative) Urine Leukocyte Esterase 1+ /uL (Negative) Urine RBC 9 /hpf (0 - 4) Urine Microscopic WBC 50 /HPF (0-5) H Urine Squamous Epithelial Cells Few /hpf (<5) Urine Bacteria Few /hpf (None Seen) H Urine Glucose 4+ mg/dL (Normal) H Microbiology Microbiology Date/Time Source Procedure Growth Status 01/22/25 17:42 Nose MRSA Screen - Final Complete 01/22/25 10:30 Voided Urine Urine Culture - Final Streptococcus Group B Complete Labs and/or images reviewed: Labs reviewed by me, Image(s) reviewed by me Assessment/Plan Assessment/Plan Complicated urinary tract infection, Pyelonephritis, Hyperglycemia, Uncontrolled diabetes, Dm type II with hyperglycemia Hyperlipidemia leukocytosis 01/23/25 needs to continue with IV aBx serum glucose is better 01/24/2025 pending urine sensitivity 01/25/2025 pending urine sensitivity re-collect UA Plan discussed with: Patient My Orders Orders - VERONICA JOHNSON DO Procedure Category Date Status Time Insulin Lantus PHA 01/25/25 In Process (Glargine) (Lantus) 10:00 Date of Service: Jan 25, 2025 Billing Provider: VERONICA JOHNSON DO Common Visit Codes: [id number] INP/OBS CARE(HIGH) VERONICA JOHNSON DO Jan 25, 2025 13:49
[2025-01-26] LABS: Urine Protein, UAD Negative (Negative)
[2025-01-26 01:00] VITALS: BP 109/74; PULSE 77; RESP 18; TEMP 98.1; O2SAT 98
[2025-01-26 05:00] VITALS: BP 108/65; PULSE 74; RESP 18; TEMP 97.7; O2SAT 97
[2025-01-26 09:00] VITALS: BP_SYST 115; BP_SYST 124; BP_DIAS 70; BP_DIAS 81; PULSE 58; PULSE 82; RESP 17; TEMP 97.9; TEMP 98.1; O2SAT 96; O2SAT 98
[2025-01-26] MEDS ORDERED: CEPH250C PO (12:46)
--- NOTE | 2025-01-26 12:47 | DVHDS2 ---
Discharge Summary Date of Admission Jan 22, 2025 at 14:09 Date of Discharge: Jan 26, 2025 Labs/Diagnostic Data: Laboratory Results Test 01/26/25 10:50 01/25/25 16:27 01/23/25 05:25 01/22/25 10:22 POC Glucose 315 mg/dl (70-106) Urine Color Light-yellow (Yellow) Urine Clarity Clear (Clear) Urine pH 5.5 (5.0-9.0) Urine Specific [place] 1.021 (1.001-1.035) Urine Protein Negative (Negative) Urine Ketones Trace (Negative) Urine Blood Negative /uL (Negative) Urine Nitrite Negative (Negative) Urine Bilirubin Negative (Negative) Urine Urobilinogen Normal mg/dL (Negative) Urine Leukocyte Esterase Negative /uL (Negative) Urine RBC 2 /hpf (0 - 4) Urine Microscopic WBC 4 /HPF (0-5) Urine Squamous Epithelial Cells Few /hpf (<5) Urine Bacteria None seen /hpf (None Seen) Urine Mucus Few (None Seen) Urine Glucose 3+ mg/dL (Normal) White Blood Count 8.4 10^3/uL (4.4-10.8) Red Blood Count 4.55 10^6/uL (4.0-5.20) Hemoglobin 14.0 g/dL (12.2-16.2) Hematocrit 39.8 % (36.0-46.0) Mean Corpuscular Volume 87.4 fL (80.0-100.0) Mean Corpuscular Hemoglobin 30.8 pg (28.0-32.0) Mean Corpuscular Hemoglobin Concent 35.3 g/dL (32.0-36.0) Red Cell Distribution Width 12.4 % (11.8-14.3) Platelet Count 325 10^3/uL (140-450) Mean Platelet Volume 7.5 fL (6.9-10.8) Neutrophils (%) (Auto) 53.5 % (37.0-80.0) Lymphocytes (%) (Auto) 35.7 % (10.0-50.0) Monocytes (%) (Auto) 8.0 % (0.0-12.0) Eosinophils (%) (Auto) 2.3 % (0.0-7.0) Basophils (%) (Auto) 0.5 % (0.0-2.0) Neutrophils # (Auto) 4.5 10 ^3/uL (1.6-8.6) Lymphocytes # (Auto) 3.0 10 ^3/uL (0.4-5.4) Monocytes # (Auto) 0.7 10 ^3/uL (0-1.3) Eosinophils # (Auto) 0.2 10 ^3/uL (0-0.8) Basophils # (Auto) 0 10 ^3/uL (0-0.2) Nucleated Red Blood Cells 0.1 % Sodium Level 137 mmol/L (136-145) Potassium Level 3.6 mmol/L (3.5-5.1) Chloride Level 102 mmol/L (98-107) Carbon Dioxide Level 25 mmol/L (20-31) Anion Gap 10 (5-15) Blood Urea Nitrogen 9 mg/dL (9-23) Creatinine 0.55 mg/dL (0.550-1.02) Glomerular Filtration Rate Calc 134 mL/min (>90) BUN/Creatinine Ratio 16.4 (10.0-20.0) Serum Glucose 216 mg/dL (74-106) Calcium Level 9.5 mg/dL (8.7-10.4) Total Bilirubin 0.6 mg/dL (0.2-1.0) Aspartate Amino Transferase (AST) 9 U/L (13-40) Alanine Aminotransferase (ALT) < 9 U/L (7-40) Alkaline Phosphatase 74 U/L (46-116) Total Protein 6.0 g/dL (5.7-8.2) Albumin 4.0 g/dL (3.2-4.8) Hemoglobin A1c 12.8 % A1C (<5.7) Other Laboratory Tests 01/23/25 05:25 Brief Hx & Hospital Course: Complicated urinary tract infection, Pyelonephritis, Hyperglycemia, Uncontrolled diabetes, Dm type II with hyperglycemia Hyperlipidemia leukocytosis 01/23/25 needs to continue with IV aBx serum glucose is better 01/24/2025 pending urine sensitivity 01/25/2025 pending urine sensitivity re-collect UA 01/26/2025 discharged to home with oral abx Condition at Discharge: Fair Final Diagnosis/Problems List same as above Discharge Disposition: Home Discharge Instruct/Medications Diet: Cardiac 2g Na,low cholest Activity: No Restrictions, As Tolerated Scheduled Acetaminophen (Acetaminophen), 500 MG PO QIDP Cephalexin (Keflex Capsule), 2 CAP PO BID Glyburide (Glyburide), 5 MG PO DAILY Metformin Hydrochloride (Metformin Hcl), 1 TAB PO BID, (Reported) Miscellaneous Medications Sitagliptin Phosphate (Januvia), Unknown Dose PO, (Reported) Discontinued Medications Acetaminophen (Acetaminophen), 500 MG PO Q6HPRN Amoxicillin & Pot Clavulanate (Amoxicillin/Potassium Cla), 1 TAB PO BID Amoxicillin & Pot Clavulanate (Amoxicillin/Potassium Cla), 1 TAB PO BID Cephalexin ( Keflex 500), 1 CAP PO TID Discharge Statement: "Patient was advised to return to the ER or call 911 if any headaches, dizziness, shortness of breath, chest pain, abdominal pain, bleeding, fevers, or worsening of medical condition. Patient was counseled about treatment plan, medications, possible side effects, patientverbalized understanding. All questions were answered to the best of my ability. This discharge took greater then 30 minutes in planning, reviewing documentation, counseling the patient, and discussing with other team members." ASSESSMENT ASSESSMENT Assessment Date of Service: Jan 26, 2025 Billing Provider: VERONICA JOHNSON DO Common Visit Codes: 53795-HML/OBS DISCH DAY >30min VERONICA JOHNSON DO Jan 26, 2025 12:47
[2025-01-26 13:00] VITALS: BP 108/67; PULSE 95; RESP 17; TEMP 98; O2SAT 97
[2025-01-26 13:36] VITALS: TEMP 36.7
== END 2025-01-26 14:00 | disposition home or self-care (01) | DRG 463 ==
LOC: ER 09:48 → OVERFLOW 14:09 → EAST 23:50
PROVIDERS: ADMIT Internal Medicine; ATTEND Internal Medicine
DX: N12 Tubulo-interstitial nephritis, not specified as acute or chronic (principal); E11.65 Type 2 diabetes mellitus with hyperglycemia; E78.5 Hyperlipidemia, unspecified
CPT/HCPCS: 36415; 74176; 80048; 80053; 81001; 82962; 83036; 85025; 87081; 87086; 96365; G0378; J1815

== ENCOUNTER 2025-05-13 20:43 | Emergency (ER) | payer MEDICAID ==
[~2025-05-13] VITALS: Ht 170.2 cm; Wt 83.1 kg
[~2025-05-13 20:43] MED LIST changes: -AMOX875T4 PO; -CEPH-510 PO; +CEPH250C PO; +METF-370 PO; +SITA25TA3 PO
[2025-05-13 21:02] VITALS: BP 125/93; PULSE 82; RESP 20; TEMP 98.7; O2SAT 96
[2025-05-13] MEDS ORDERED: CLIN1CAP70 PO (21:11)
[2025-05-13] MEDS ORDERED: IBUP-1456 PO (21:11)
[2025-05-13] MEDS ORDERED: CEFI400C3 PO (21:11)
--- NOTE | 2025-05-13 21:11 | ED.PDOC ---
[employer] HPI Comments 20-year-old female presents to ER with complaints of wound check. Patient reports that he has been experiencing pain/swelling/redness to left side of the labia x2 days that got worse x1 day. States that she followed up with her PCP today with regards to her symptoms but states that she was not prescribed any medications or referred out. She rates her current pain a 9/10 to left side of the labia and denies use of medications for current symptoms. Patient presents to ER afebrile, ambulatory, with steady gait, in no distress. Denies fever, body aches, chills, vaginal discharge, changes in urination or any further symptoms/complaints Chief Complaint: Abscess Time Seen by MD: 20:53 Primary Care Provider: DR. VALIENTE Reviewed Notes: Nurses Notes, Medications, Allergies Allergies: Coded Allergies: NO KNOWN ALLERGIES (Unverified , 07/21/11) Home Meds Active Scripts Ibuprofen (Ibuprofen) 800 Mg Tab, 1 TAB PO TID PRN, #30 TAB 0 Refills Prov:NINFA ALBA 05/13/25 Clindamycin Hcl (Clindamycin Hcl) 300 Mg Cap, 300 MG PO QID for 7 Days, #28 CAP 0 Refills Prov:NINFA ALBA 05/13/25 Cefixime (Cefixime) 400 Mg Cap, 400 MG PO DAILY for 7 Days, #7 CAP 0 Refills Prov:NINFA ALBA 05/13/25 Cephalexin (KEFLEX CAPSULE) 250 Mg Cp, 2 CAP PO BID for 5 Days, #20 CAP Prov:VERONICA JOHNSON T DO 01/26/25 Glyburide (Glyburide) 5 Mg Tab, 5 MG PO DAILY, #30 MG Prov:ADITI HIDALGO T DO 12/30/21 Acetaminophen (Acetaminophen) 500 Mg Tab, 500 MG PO QIDP, #30 TAB 0 Refills Prov:NINFA ALBA 10/19/21 Reported Medications Sitagliptin Phosphate (Januvia) 25 Mg Tab, PO, TAB 01/22/25 Metformin Hydrochloride (Metformin Hcl) 500 Mg Tab, 1 TAB PO BID, #60 TAB 3 Refills 01/22/25 Information Source: Patient Mode of Arrival: Ambulatory Past Medical History PAST MEDICAL HISTORY: DM Surgical History: Tonsillectomy CERTIFIED MEDICAL ASSISTANT History: No Pertinent CERTIFIED MEDICAL ASSISTANT History LMP "CURRENT" Family History Family History: Unknown Social History Smoker: Non-Smoker Alcohol: Denies ETOH Use Drugs: Denies Drug Use Lives In: Home Constitutional: denies: chills, diaphoresis, fatigue, fever, malaise, sweats, weakness, others EENTM: denies: blurred vision, double vision, ear bleeding, ear discharge, ear drainage, ear pain, ear ringing, eye pain, eye redness, hearing loss, mouth pain, mouth swelling, nasal discharge, nose bleeding, nose congestion, nose pain, photophobia, tearing, throat pain, throat swelling, voice changes, others Respiratory: denies: cough, hemoptysis, orthopnea, SOB at rest, shortness of breath, SOB with excertion, stridor, wheezing, others Cardiovascular: denies: chest pain, dizzy spells, diaphoresis, Dyspnea on exertion, edema, irregular heart beat, left arm pain, lightheadedness, palpitations, PND, syncope, others Gastrointestinal: denies: abdomen distended, abdominal pain, blood streaked bowels, constipated, diarrhea, dysphagia, difficulty swallowing, hematemesis, melena, nausea, poor appetite, poor fluid intake, rectal bleeding, rectal pain, vomiting, others Genitourinary: reports: others (As stated in HPI) Neurological: denies: dizziness, fainting, headache, left sided numbness, left sided weakness, numbness, paresthesia, pre-existing deficit, right sided numbness, right sided weakness, seizure, speech problems, tingling, tremors, weakness, others Musculoskeletal: denies: back pain, gout, joint pain, joint swelling, muscle pain, muscle stiffness, neck pain, others Integumetry: reports: others (As stated in HPI) Allergic/Immunocompromised: denies: Difficulty Healing, Frequent Infections, Hives, Itching, others Hematologic/Lymphatic: denies: anemia, blood clots, easy bleeding, easy bruising, swollen glands, others Endocrine: denies: excessive hunger, excessive sweating, excessive thirst, excessive urination, flushing, intolerance to cold, intolerance to heat, unexplained weight gain, unexplained weight loss, others Psychiatric: denies: anxiety, bipolar disorder, depression, hopeless, panic disorder, schizophrenia, sleepless, suicidal, others Physical Exam General Appearance: No Apparent Distress HEENT: PERRL/EOMI Neck: Full Range of Motion, Non-Tender, Normal Respiratory: Chest Non-Tender, Lungs Clear, No Accessory Muscle Use, No Respiratory Distress, Normal Breath Sounds Cardiovascular: No Murmur, No Gallop, Regular Rate/Rhythm Breast Exam: Deferred Gastrointestinal: Non Tender, No Pulsatile Mass, Soft Genitalia: Deferred Pelvic: Other (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 Was a procedure done?: No Sedation Sedation?: No Differential Diagnosis (CERTIFIED MEDICAL ASSISTANT) Mass / Lesion: Bartholin Abscess, Perianal Abscess, Vaginitis - Bacterial Vaginal Discharge: UTI X-Ray, Labs, Meds, VS Vital Signs Date Time Temp Pulse Resp B/P (MAP) Pulse Ox O2 Delivery O2 Flow Rate FiO2 05/13/25 21:02 Room Air* 0 21 05/13/25 21:02 98.7 82 20 125/93 (104) 96 98.7 05/13/25 20:47 98.7 82 20 125/93 96 98.7 ROCEPHIN 1 G IM ORDERED IBUPROFEN 800 MG P.O. ORDERED WARM SITZ BATHS DISCUSSED AND ADVISED ADVISED TO REFRAIN FROM VAGINAL INTERCOURSE UNTIL SYMPTOMS FULLY SUBSIDE ADVISED TO FOLLOW UP WITH PCP AND GYNECOLOGY IN 1-2 DAYS PATIENT VERBALIZED UNDERSTANDING AND AGREEABLE WITH CURRENT PLAN OF CARE ADVISED TO RETURN TO ER IMMEDIATELY IF SYMPTOMS WORSEN Time of 1ST Reevaluation: 20:44 Reevaluation 1ST: N/A Patient Education/Counseling: Diagnosis, Treatment, Prognosis, Need For Follow Up Family Education/Counseling: No Family Present Departure 1 Departure Time of Disposition: 21:05 Impression: Primary Impression: Bartholin gland cyst Disposition: HOME / SELF CARE / HOMELESS Condition: Stable e-Prescriptions Ibuprofen (Ibuprofen) 800 Mg Tab 1 TAB PO TID PRN, #30 TAB 0 Refills Prov: NINFA ALBA 05/13/25 Clindamycin Hcl (Clindamycin Hcl) 300 Mg Cap 300 MG PO QID for 7 Days, #28 CAP 0 Refills Prov: NINFA ALBA 05/13/25 Cefixime (Cefixime) 400 Mg Cap 400 MG PO DAILY for 7 Days, #7 CAP 0 Refills Prov: NINFA ALBA 05/13/25 Discharged With: Self Critical Care Note Critical Care Time?: No Stability Stability form required: No Heart Score Heart Score: Heart Score Response (Comments) Value History N/A 0 EKG N/A 0 Age N/A 0 Risk Factors N/A 0 Troponin N/A 0 Total 0 NINFA ALBA May 13, 2025 21:11
[2025-05-13] MEDS: IBUPROFEN 800 MG TAB PO ONE (21:16)
[2025-05-13] MEDS: cefTRIAXone SOD 1,000 MG VL IM ONE (21:16)
== END 2025-05-13 21:21 | disposition home or self-care (01) ==
LOC: ER 20:43
DX: N75.0 Cyst of Bartholin's gland (principal); E11.9 Type 2 diabetes mellitus without complications; Z79.84 Long term (current) use of oral hypoglycemic drugs; Z90.89 Acquired absence of other organs
CPT/HCPCS: 96372; 99284; J0696